=== PATIENT | female | born 1995 | race Hispanic/Latino ===

== ENCOUNTER 2024-07-09 00:05 | Emergency (ER) | payer SELFPAY ==
[2024-07-09] VITALS (7 sets, daily range): BP systolic 101–143; BP diastolic 56–85
[~2024-07-09] VITALS: Ht 154.9 cm; Wt 95.0 kg
[2024-07-09] MEDS ORDERED: Pantoprazole Sodium 40 MG VIAL (Protonix) IV STA (00:28)
[2024-07-09] MEDS ORDERED: SODIUM CHLORIDE 0.9% 1,000 ML IV STA (00:28)
[2024-07-09] MEDS ORDERED: ALUM & MAG HYDROX-SIMETHICONE 30 ML PO ONE (00:30)
[2024-07-09] MEDS ORDERED: PROMETHAZINE HCL 25 MG/ML AMP IV ONE (00:30)
[2024-07-09] MEDS ORDERED: KETOROLAC TROMETHAMINE 30 MG/ML SDV IV ONE (00:30)
[2024-07-09 00:40] LABS: BASO% 0.3 % (0-3); EOS% 3.4 % (0-8); HEMATOCRIT 39.3 % (37.0-47.0); HEMOGLOBIN 13.6 g/dl (12.0-16.0); IMMATURE GRANULOCYTES 1.1 % (0.0-5.0); LYMPH% 29.5 % (15-41); MEAN CELL VOLUME 95.9 fL CALC (80.0-100.0); MEAN CORPUSCULAR HGB 33.2 pG CALC (26.0-32.0); MEAN CORPUSCULAR HGB CONC 34.6 g/dL CAL (32.0-36.0); MONO% 5.4 % (2-13); NEUT# 7.18 thou/uL (2.00-7.15); NEUT% 60.3 % (42-76); RED BLOOD COUNT 4.1 mill/uL (4.20-5.60); RED CELL DISTRI WIDTH 11.2 % (11.5-15.5)
[2024-07-09 00:51] LABS: ALBUMIN 4.9 g/dL (3.2-5.0); BILIRUBIN, TOTAL 0.7 mg/dL (0.02-1.3); CREATININE 0.6 mg/dL (0.5-1.0)
[2024-07-09] MEDS ORDERED: TYLENOL # 31 TA1 PO (02:09)
== END 2024-07-09 02:30 | disposition home or self-care (01) | DRG 446 ==
LOC: ED 00:05
PROVIDERS: Family Medicine
DX: K80.40 Calculus of bile duct with cholecystitis, unspecified, without obstruction (principal)
CPT/HCPCS: J2470; J2550; Q9967